=== PATIENT | female | born 1985 | race African-American/Black ===

== ENCOUNTER 2016-12-18 13:38 | Emergency (ER) | payer SELFPAY ==
[2016-12-18 13:57] VITALS: TEMP 98; BMI 28.9
[2016-12-18] MEDS ORDERED: NS 1,000 ML IV ONE ×2 (14:02)
[2016-12-18] MEDS ORDERED: SODIUM CHLORIDE 0.9% 3 ML FLUSH FLUSH PRN (14:02)
--- NOTE | 2016-12-18 14:24 | EDPRACDOC ---
- General Information Chief Complaint: Bleeding (Rectal &/or other) Stated Complaint: C/O ABD PAIN ? 5-6 WEEKS PREG. C/O VAGINAL BLEEDIN Time Seen by Provider: 12/18/16 14:01 Information Source: Patient Home Medications: Home Medications Hydrocodone Bit/Acetaminophen [Hydrocodon-Acetaminophen 5-325] 1 tab PO Q6H PRN #15 tab 12/18/16 Ketorolac Tromethamine [Toradol] 10 mg PO Q6H PRN #20 tab 12/18/16 Ondansetron [Zofran Odt] 4 mg PO Q6H #20 tab.rapdis 12/18/16 Allergies/Adverse Reactions: Allergies Allergy/AdvReac Type Severity Reaction Status Date / Time PAIN MEDICATION Allergy See Uncoded 12/18/16 13:58 Comments - History of Present Illness Onset: 1000 HPI: PT STATES SHE IS APPROX 6-8 WEEKS STARTED HAVING VAGINAL BLEEDING AND LOWER ABD CRAMPING THIS AM. DENIES VAGINAL DISCHARGE N/V/D AT THIS TIME. Description: Reports: Spontaneous Location: Reports: External Vagina, Internal Vagina Relevant History: Reports: Currently Last Menstrual Period: 10/16/16 Control Method: Reports: None Blood Type: Unknown Pain Severity: Mild Vaginal Bleeding Description: Reports: Bright Red, Dark Associated Signs & Symptoms: Reports: Abdominal Pain, Vaginal Bleeding ED Past Medical History - History Reviewed Yes Nurses notes reviewed and agree except as marked Travel Outside of [place] in the Last 3 Months?: No - Patient Medical History Psychological History: Reports: Anxiety. Denies: Depression Surgical History: Denies: Hysterectomy - Social Medical History Smoking Status: Current some day smoker ETOH: None Substance Abuse: None Lives With: Spouse Lives In: Home EDM Review of Systems - Review of Systems ROS Negative Except as Marked: Yes All systems reviewed and were negative except as marked Constitutional: No Symptoms Reported. negative: Fever, Chills, Weakness, Fatigue, Loss of Appetite Eyes: No Symptoms Reported. negative: Redness, Blurred Vision, Double Vision, Discharge, Pain, Light Sensitive, Photophobia Ears: No Symptoms Reported. negative: Pain, Hearing Loss, Drainage, Ear Pulling Throat: No Symptoms Reported. negative: Pain, Swelling Nose: No Symptoms Reported. negative: Congestion, Bleeding, Discharge, Injection, Swelling, Deformity, Ecchymosis, Tender, Abrasion, Laceration Mouth: No Symptoms Reported. negative: Pain, Drooling Respiratory: No Symptoms Reported. negative: Cough, Brassy Cough, Barky Cough, Shortness of Breath, Wheezing, Hemoptysis Cardiovascular: No Symptoms Reported. negative: Chest Pain, Palpitations, Syncope, Edema, Orthopnea, PND, Skin Mottling, Cyanosis Gastrointestinal: Pain (CRAMPING). negative: Constipation, Diarrhea, Formula Intolerance, Melena, Nausea, Vomiting Genitourinary: Vaginal Bleeding. negative: Bleeding, Dysuria, Discharge, Frequency, Hematuria, , Testicular Pain Neurological: No Symptoms Reported. negative: Headache, Dizziness, Seizure, Numbness, Weakness, Speech Difficulty, Gait Difficulty Musculoskeletal: No Symptoms Reported. negative: Neck, Chestwall, Ribs, Back, Shoulder, Arm, Elbow, Forearm, Wrist, Hand, Pelvis, Hip, Femur, Knee, Leg, Ankle , Foot Integumentary: No Symptoms Reported. negative: Itching, Rash, Bruising, Wound Allergic/Immunologic: No Symptoms Reported. negative: Hives, Itching Hematologic: No Symptoms Reported. negative: Lymphadenopathy, Easy Bruising, Easy Bleeding Endocrine: No Symptoms Reported. negative: Weight Gain, Weight Loss Psychiatric: No Symptoms Reported. negative: Anxiety, Depression, Hallucinations, Insomnia, Suicidal - Physical Exam Constitutional: No apparent distress, Alert (Awake) Oriented to: Time, Person, Place Last recorded Vital Signs: Last Vital Signs Temp 98 F 12/18/16 13:49 Pulse 101 12/18/16 13:49 Resp 20 12/18/16 13:49 BP 179/100 12/18/16 13:49 Pulse Ox 99 12/18/16 13:49 Oxygen Pulse Oxygen Saturation 99 O2 Device Room Air Oxygen Flow Rate Fraction of Inspired Oxygen ( FIO2) - HEENT Head: Normal ( normocephalic) Eye Exam: Normal (PERRL, EOMI, Sclera white) Oropharynx: Normal (Pharynx:Moist without exudate,Gums-no swelling) Tympanic Membrane: Normal ENT EAC: Normal TMJ: Normal Nose: No Symptoms Reported (septum midline) Neck: Normal (FROM, trachea at midline) - Respiratory/Cardiovascular Respiratory: Normal - CTA (BBS clear to auscultation without adventitious sounds ) Cardiovascular: Normal (RRR without murmur, gallop or rub) - GI Auscultation: Normal (NABS) Palpation: Normal (Soft,No rebound or guarding, non distended) Tenderness: Non tender Covarrubias's Sign: Negative - Bladder: Normal - Musculoskeletal Back: Normal (Non-Tender) Extremities: Normal (Normal tone, Pulses 2+ No cyanosis or edema, FROM) - Integumentary Skin: Normal, Warm, Dry Lymphatics: Normal (no adenopathy) - Neurologic Memory Impaired: Normal Motor Function: Normal (Normal tone, Pulses 2+ No cyanosis or edema, FROM) Cranial Nerve: Normal (CN II-X11 intact sensation, strength 5/5) Cerebellar: Normal Mood Description: Normal Perception: Normal ED Vaginal Exam External: Normal Vaginal Exam: Blood Vaginal Lesions: None Vaginal Discharge: None Cervix: Blood Uterus: Enlarged (SLIGHT) Adnexa: Normal - Differential Diagnosis Inevitable , Incomplete , Threatened , Vaginitis, Other (SPONTANEOUS MISCARRIAGE) - Results 12/18/16 14:25 12/18/16 14:25 - Diagnostic Imaging US [id number] Image interpreted by: Radiologist IMPRESSION: No IUP, adnexal abnormality, or pelvic free fluid. Differential considerations include early IUP, failed IUP, and occult ectopic . Recommend serial quantitative beta HCG and follow-up ultrasound as needed. Decision Time to Discharge: 17:59 - Departure Disposition: Home Condition: Stable Final Diagnosis: Vaginal bleeding, Complete miscarriage Abdominal pain Qualifiers: Abdominal location: unspecified location Qualified Code(s): R10.9 - Unspecified abdominal pain Instructions: Non-pharmacological Pain Management Therapies for Adults (GEN), Abdominal Pain (ED), Miscarriage (ED) Education/Counseling Given To: Patient Education/Counseling Given Regarding: Diagnosis, Treatment, Prognosis, Follow Up Referrals: None,No Provider [Primary Care Provider] - One Week Pb Mallory MD [Staff Physician] - One Week Prescriptions: New Hydrocodone Bit/Acetaminophen [Hydrocodon-Acetaminophen 5-325] 1 tab PO Q6H PRN #15 tab PRN Reason: Pain Ketorolac Tromethamine [Toradol] 10 mg PO Q6H PRN #20 tab PRN Reason: Pain Ondansetron [Zofran Odt] 4 mg PO Q6H #20 tab.rapdis Additional Instructions: Return to the Emergency Deparment for increasing or different abdominal pain, vaginal bleeding that soaks two pads per hour for two hours, feeling like you might pass out, or any concerns.
[2016-12-18 14:34] LABS: AUTOMATED BASOPHIL 1.6 % (0-2); AUTOMATED EOSINOPHIL 1.3 % (0-5); AUTOMATED LYMPH 16.3 % (17-44); AUTOMATED MONOCYTE 4.2 % (3-10); AUTOMATED NEUTROPHIL 76.6 % (45-76); MPV 9.5 fL (7.4-10.4)
[2016-12-18 14:49] LABS: BLOOD UREA NITROGEN 12 MG/DL (7-17); CALCIUM 9.6 MG/DL (8.4-10.2); CALCULATED OSMOLALITY 272 MOs/Kg (270-290); CHLORIDE 106 mEq/L (98-107); GLUCOSE 87 mg/dL (70-99); SODIUM LEVEL 142 mEq/L (137-146); TOTAL PROTEIN 7.9 G/DL (6.3-8.2)
[2016-12-18 15:21] LABS: LEUKOCYTES/URINE NEG (NEGATIVE); NITRITE/URINE NEG (NEGATIVE); URINE OCCULT BLOOD NEG (NEG/TRACE); WBC/URINE 0-2 (0-5)
--- NOTE | 2016-12-18 17:15 | DIRPT ---
CLINICAL DATA: 31-year-old female with cramping and vaginal bleeding in the first trimester of . Initial encounter. Estimated gestational age by LMP 6-8 weeks. EXAM: OBSTETRIC <14 WK US AND TRANSVAGINAL OB US TECHNIQUE: Both transabdominal and transvaginal ultrasound examinations were performed for complete evaluation of the gestation as well as the maternal uterus, adnexal regions, and pelvic cul-de-sac. Transvaginal technique was performed to assess early . COMPARISON: None. FINDINGS: Intrauterine gestational sac: None Yolk sac: None Embryo: None Cardiac Activity: None Subchorionic hemorrhage: Not at the global Maternal uterus/adnexae: [facility] appearing endometrial stripe, 3-5 mm in thickness. The right ovary appears normal measuring 2.7 x 1.6 x 2.4 cm, several small follicles. The left ovary appears normal measuring 2.4 x 1.2 x 1.7 cm, with occasional small follicles. No pelvic free fluid. IMPRESSION: No IUP, adnexal abnormality, or pelvic free fluid. Differential considerations include early IUP, failed IUP, and occult ectopic . Recommend serial quantitative beta HCG and follow-up ultrasound as needed. Electronically Signed By: Barry Lomeli M.D. On: 12/18/2016 17:13
[2016-12-18] MEDS ORDERED: SODIUM CHLORIDE 0.9% 3 ML FLUSH FLUSH SCH (18:00)
[2016-12-18 18:24] VITALS: BP 150/82; PULSE 81
[2016-12-21 18:39] LABS: CHLAMY BY NUCLEIC ACID AMP Negative (Negative)
[2016-12-22 06:37] LABS: GC BY NUCLEIC ACID AMP Negative (Negative)
== END 2016-12-18 18:20 | disposition home or self-care (01) ==
LOC: ED 13:38
DX: O03.9 Complete or unspecified spontaneous abortion without complication (principal)
CPT/HCPCS: 36415; 76801; 76817; 80053; 81001; 84702; 85025; 86900; 86901; 87210; 87220; 87491; 87591; 96360; 96361; 99284